=== PATIENT | female | born 1985 | race Hispanic/Latino ===

== ENCOUNTER 2017-07-08 21:32 | Emergency (ER) | payer OTHER, SELFPAY | END 2017-07-08 22:03 | disposition left against medical advice (07) | LOC: ERS 21:32 | DX: Z53.21 Procedure and treatment not carried out due to patient leaving prior to being seen by health care provider (principal) ==

== ENCOUNTER 2017-10-01 23:24 | Emergency (ER) | payer MEDICAID, OTHER, SELFPAY | END 2017-10-02 00:46 | disposition home or self-care (01) | LOC: ERS 23:24 | DX: J03.90 Acute tonsillitis, unspecified (principal); F41.9 Anxiety disorder, unspecified; F17.210 Nicotine dependence, cigarettes, uncomplicated | CPT/HCPCS: 87081; 87430; 99283 ==

== ENCOUNTER 2017-10-20 07:39 | Day surgery (SDC) | payer OTHER ==
[2017-10-19 12:21] VITALS: BMI 26.4
[2017-10-20] MEDS ORDERED: Midazolam HCl 2 mg/2 ml Vial ONE ×2 (09:26→09:34)
[2017-10-20] MEDS ORDERED: Fentanyl 100 MCG/2 ML VIAL ONE ×4 (09:34→11:09)
--- NOTE | 2017-10-20 10:35 | OP ---
PREOPERATIVE DIAGNOSES: 1. Chronic tonsillitis. 2. Obstructive tonsillar hypertrophy. POSTOPERATIVE DIAGNOSES: 1. Chronic tonsillitis. 2. Obstructive tonsillar hypertrophy. PROCEDURE: Tonsillectomy over 12 years of age. PROCEDURE IN DETAIL: After consent was obtained, the patient was identified, brought to the operatin g room, and placed on the operating table in the supine position. General endotracheal anesthesia an d intravenous access was obtained and we proceeded with positioning the patient for oropharyngeal ibis emelina. Oropharyngeal exposure was obtained with a Roxy-Alex mouth gag after a head drape was placed and secured with a towel clip. The Roxy-Alex mouth gag was then suspended from the Johnson tray and palatal elevation was achieved with a red rubber catheter. The right tonsil was addressed first. We used a curved Allis to grasp the tonsil and retract it medially as an anterior pillar incision was m aliza with a #12 blade. The retrotonsillar fascial plane was then established and blunt dissection was performed with the suction cautery. Blood vessels were anticipated, identified, and cauterized as t hey were encountered. Ultimately, dissection was carried to the posterior tonsillar pillar mucosa wh ich was incised hemostatically, as well as the base of tongue connection. The tonsil was then passed off as a specimen and bleeding points within the tonsillar bed were cauterized under direct visualiz ation. We subsequently turned our attention to the contralateral side, where using a similar techniq ue, a near identical procedure was performed. Again, the tonsil was grasped and retracted medially w ith a curved Allis as an anterior pillar incision was made with a #12 blade. The retrotonsillar fasc ial plane was established and while the anterior pillar was retracted medially, the hemostatic blunt dissection of the tonsil with a suction cautery was performed with blood vessels anticipated, identif ied, and cauterized as they were encountered. Again, dissection continued to the base of tongue and posterior tonsillar pillar mucosa which was incised in a hemostatic fashion. The tonsillar beds were then carefully inspected and bleeding points were identified and cauterized with a suction cautery. After this portion of the procedure, hemostasis was completely obtained. The patient's oral cavity was copiously irrigated with iced saline and subsequently suctioned. We then used the red rubber cat heter to suction the gastric contents and the patient was subsequently aroused, awakened, and extubat ed without difficulty and transported to the recovery room in stable condition. There were no compli cations.
[2017-10-20] MEDS ORDERED: Meperidine HCl/PF 25 MG/ML VIAL ONE (10:51)
[2017-10-20] MEDS ORDERED: Promethazine HCl 25 MG/ML VIAL IM/IV PRN (11:20)
[2017-10-20] MEDS ORDERED: Meperidine HCl/PF 25 MG/ML VIAL IV PRN (11:20)
[2017-10-20] MEDS ORDERED: Ondansetron HCl/PF 4 MG/2 ML Vial IVP PRN (11:20)
[2017-10-20] MEDS ORDERED: Non-Formulary Medication 1 EACH PO PRN (11:20)
== END 2017-10-20 13:00 | disposition home or self-care (01) ==
LOC: SDC 07:39
PROVIDERS: ATTEND Specialist
PROC: 0CTPXZZ Resection of Tonsils, External Approach (ICD-10-PCS; principal; 2017-10-20)
DX: J35.01 Chronic tonsillitis (principal); F17.200 Nicotine dependence, unspecified, uncomplicated; Z90.49 Acquired absence of other specified parts of digestive tract; Z98.890 Other specified postprocedural states
CPT/HCPCS: 85014; 96374; J0131; J2175; J2250; J3010

== ENCOUNTER 2017-10-20 18:24 | Emergency (ER) | payer OTHER ==
[2017-10-20] MEDS ORDERED: Dexamethasone 4 mg/ml Vial ONE (18:36)
== END 2017-10-20 20:10 | disposition home or self-care (01) ==
LOC: ERS 18:24
DX: K13.79 Other lesions of oral mucosa (principal); F41.9 Anxiety disorder, unspecified; F17.210 Nicotine dependence, cigarettes, uncomplicated
CPT/HCPCS: 85014; 88304; 96361; 96374; 99406; J0131; J1100; J2001; J2175; J2250; J2405; J2704; J3010

== ENCOUNTER 2017-10-23 08:26 | Emergency (ER) | payer OTHER ==
[2017-10-23] MEDS ORDERED: Dexamethasone 10 MG/ML VIAL ONE (09:39)
== END 2017-10-23 11:42 | disposition home or self-care (01) ==
LOC: ERS 08:26
DX: J95.89 Other postprocedural complications and disorders of respiratory system, not elsewhere classified (principal); R60.0 Localized edema; F41.9 Anxiety disorder, unspecified; F17.210 Nicotine dependence, cigarettes, uncomplicated; Z79.891 Long term (current) use of opiate analgesic
CPT/HCPCS: 96372; J1040; J1100

== ENCOUNTER 2020-12-20 14:58 | Emergency (ER) | payer OTHER | END 2020-12-20 16:38 | disposition home or self-care (01) | LOC: ERS 14:58 | DX: J02.9 Acute pharyngitis, unspecified (principal); F17.210 Nicotine dependence, cigarettes, uncomplicated; Z20.822 Contact with and (suspected) exposure to COVID-19 | CPT/HCPCS: 99283 ==

== ENCOUNTER 2024-10-26 16:44 | Emergency (ER) | payer BC, OTHER ==
[2024-10-26 17:55] LABS: #Basophils 0.09 10x3/uL (0.0-0.2); %Basophils 0.7 % (0.0-1.0); %Eosinophils 1.1 % (0.0-10.0); %Monocytes 9.4 % (0.0-10.0); %Neutrophils 64.4 % (42.0-75.0); Hematocrit 39.2 % (36.0-47.0); Hemoglobin 13.1 g/dL (12.0-16.0); Mean Corpuscular HGB CONC 33.4 g/dL (32.0-36.0); Mean Corpuscular Hemoglobin 28.8 pg (27.0-31.0); Mean Corpuscular Volume 86.2 fL (78.0-98.0); Mean Platelet Volume 10.1 fL (7.4-10.4); Platelet Count 350 10x3/uL (130-400); RBC Distribution Width 14.6 % (11.5-14.5); Red Blood Cell (RBC) Count 4.55 mill/uL (4.20-5.40)
[2024-10-26 18:10] LABS: Troponin I Less than 0.010 ng/mL (< 0.028)
[2024-10-26 18:12] LABS: BHCG - Serum Negative (NEGATIVE); Pregs Control Background? CLEAR/WHITE (CLR/WHITE); Pregs Control Bar Appear? YES (CONTROL BAR)
[2024-10-26] MEDS ORDERED: Ketorolac Tromethamine 30 MG (1 mL) VIAL ONE (18:31)
[2024-10-26] MEDS ORDERED: Aspirin Chewable 81 MG TAB ONE ×2 (18:32→18:33)
[2024-10-26 19:16] LABS: ALT (SGPT) 14 U/L (Less than 34); AST (SGOT) 32 U/L (11-34); Albumin 3.6 g/dL (3.1-4.5); Alkaline Phosphatase 75 U/L (40-110); Anion Gap 16 mmol/L (10-20); BUN (Urea Nitrogen) 18 mg/dL (7.0-18.7); Bilirubin, Total 0.3 mg/dL (0.3-1.2); Calc. Creatinine Clearance 0 mL/min (70-130); Calcium 8.9 mg/dL (7.8-10.44); Carbon Dioxide 21 mmol/L (22-29); Chloride 102 mmol/L (98-107); Estimated GFR 73; Globulin 4.2 g/dL (2.4-3.5); Glucose 81 mg/dL (70-105); Potassium 3.8 mmol/L (3.5-5.1); Protein, Total 7.8 g/dL (6.0-8.3); Sodium 135 mmol/L (136-145)
== END 2024-10-26 19:08 | disposition home or self-care (01) ==
LOC: ERS 16:44
DX: M79.602 Pain in left arm (principal); R07.89 Other chest pain; I10 Essential (primary) hypertension; F17.210 Nicotine dependence, cigarettes, uncomplicated; Z79.899 Other long term (current) drug therapy
CPT/HCPCS: 71045; 80053; 84484; 84703; 85025; 93005; 94760; 96374; J1885

== ENCOUNTER 2025-07-15 14:28 | Emergency (ER) | payer BC, OTHER ==
[2025-07-15] MEDS ORDERED: Famotidine/PF 20 mg/2ml Vial ONE (14:59)
[2025-07-15 16:08] LABS: #Basophils 0.06 10x3/uL (0.0-0.2); #Eosinophils 0.03 10x3/uL (0.0-0.7); #Monocytes 0.95 10x3/uL (0.11-0.59); #Neutrophils 11.56 10x3/uL (1.40-6.50); %Basophils 0.4 % (0.0-1.0); %Eosinophils 0.2 % (0.0-10.0); %Lymphocytes 14.9 % (21.0-51.0); %Monocytes 6.4 % (0.0-10.0); %Neutrophils 77.4 % (42.0-75.0); Hematocrit 36.7 % (36.0-47.0); Hemoglobin 11.6 g/dL (12.0-16.0); Mean Corpuscular Hemoglobin 27.1 pg (27.0-31.0); Mean Corpuscular Volume 85.7 fL (78.0-98.0); Platelet Count 357 10x3/uL (130-400); Red Blood Cell (RBC) Count 4.28 mill/uL (4.20-5.40); White Blood Cell (WBC) Count 14.93 10x3/uL (4.8-10.8)
[2025-07-15 16:24] LABS: ALT (SGPT) 17 U/L (Less than 34); AST (SGOT) 20 U/L (11-34); Albumin 3.4 g/dL (3.1-4.5); Alkaline Phosphatase 77 U/L (40-110); Anion Gap 12 mmol/L (10-20); BUN (Urea Nitrogen) 12 mg/dL (7.0-18.7); Bilirubin, Total 0.2 mg/dL (0.3-1.2); Calc. Creatinine Clearance 0 mL/min (70-130); Calcium 8.6 mg/dL (7.8-10.44); Carbon Dioxide 24 mmol/L (22-29); Chloride 103 mmol/L (98-107); Globulin 3.4 g/dL (2.4-3.5); Glucose 211 mg/dL (70-105); Potassium 3.5 mmol/L (3.5-5.1); Sodium 135 mmol/L (136-145)
== END 2025-07-15 16:55 | disposition home or self-care (01) ==
LOC: ERS 14:28
DX: R06.02 Shortness of breath (principal); R73.9 Hyperglycemia, unspecified; I10 Essential (primary) hypertension; Z87.891 Personal history of nicotine dependence; Z79.899 Other long term (current) drug therapy
CPT/HCPCS: 71045; 80053; 83880; 84484; 85025; 85379; 93005; 96374; J1308